=== PATIENT | male | born 1965 | race Hispanic/Latino ===

== ENCOUNTER 2017-03-27 22:01 | Emergency (ER) | payer OTHER ==
[2017-03-27 22:46] VITALS: RESP 16; TEMP 99.2
[2017-03-27] MEDS ORDERED: Sodium Chloride 0.9% 1,000 ML IV STA (23:34)
[2017-03-28 00:12] LABS: ALB/GLOB RATIO 1.4 (1.0-2.1); ALBUMIN 3.8 g/dL (3.5-5.0); ALT/SGPT 45 U/L (21-72); AST/SGOT 41 U/L (17-59); BLOOD UREA NITROGEN 13 mg/dl (9-20); CALCIUM 8.3 mg/dL (8.4-10.2); GFR AFRICAN-AMERICAN > 60; GFR NON-AFRICAN AMERICAN > 60; MAGNESIUM 1.9 MG/DL (1.6-2.3)
[2017-03-28 00:34] LABS: BASO # 0.1 K/uL (0.0-0.2); BASO % 0.3 % (0.0-2.0); EOS % 0.2 % (0.0-4.0); HEMOGLOBIN 13.3 g/dL (12.0-18.0); LYMPH # 2.5 K/uL (1.0-4.3); LYMPH % 10.7 % (20.0-40.0); MEAN CELL VOLUME 89.6 fl (80.0-94.0); MEAN CORPUSCULAR HEMOGLOBIN 29.7 pg (27.0-31.0); MEAN CORPUSCULAR HGB CONC 33.2 g/dL (33.0-37.0); MEAN PLATELET VOLUME 8.3 fl (7.2-11.7); MONO # 1.1 K/uL (0.0-0.8); MONO % 4.7 % (0.0-10.0); NEUT # 19.5 K/uL (1.8-7.0); NEUT % 84.1 % (50.0-75.0); RBC 4.49 Mil/uL (4.40-5.90); RED CELL DISTRIBUTION WIDTH 14.1 % (11.5-14.5); WHITE BLOOD COUNT 23.2 K/uL (4.8-10.8)
[2017-03-28] MEDS ORDERED: Ciprofloxacin 400mg/200ml D5W 400 MG/200 ML BAG IVPB STA (00:43)
[2017-03-28] MEDS ORDERED: Potassium Chloride 20 mEq ER Tab PO STA (00:43)
[2017-03-28] MEDS ORDERED: metroNIDAZOLE 500mg/100ml NS 100 ML IVPB STA (00:45)
[2017-03-28] MEDS ORDERED: Potassium Chloride 20 mEq ER Tab PO ONE (00:49)
--- NOTE | 2017-03-28 02:28 | ED PDOC ---
HPI: Abdomen Time Seen by Provider: 03/28/17 00:40 Chief Complaint (Nursing): GI Problem Chief Complaint (Provider): diarrhea History Per: Patient (51 y/o male here for evaluation of multiple episodes of watery diarrhea x 1 days. Notes nausea but denies any vomiting/fevers. Patient states he noted similar symptoms 1 week prior and was seen at urgent care with cipro x 3 days prescribed. Noted improvement of symptoms but has return of symptoms. Has had diarrhea intermittently x 1 year but has not seen GI for this.) Past Medical History Reviewed: Historical Data, Nursing Documentation, Vital Signs Vital Signs: Last Vital Signs Temp 99.2 F 03/27/17 22:42 Pulse 86 03/28/17 03:09 Resp 16 03/28/17 03:09 BP 134/89 03/28/17 03:09 Pulse Ox 98 03/28/17 03:18 - Surgical History Surgical History: Back Surgery (with hardware) - Family History Family History: States: No Known Family Hx - Home Medications Home Medications: Ambulatory Orders Medication Instructions Recorded Ciprofloxacin HCl [Cipro] 500 mg PO BID #14 tablet 03/28/17 Metronidazole [Flagyl] 500 mg PO QID #28 tablet 03/28/17 - Allergies Allergies/Adverse Reactions: Allergies Allergy/AdvReac Type Severity Reaction Status Date / Time No Known Allergies Allergy Verified 03/27/17 22:44 Review of Systems ROS Statement: Except As Marked, All Systems Reviewed And Found Negative Gastrointestinal: Positive for: Diarrhea Physical Exam - Reviewed Nursing Documentation Reviewed: Yes Vital Signs Reviewed: Yes - Physical Exam Appears: Positive for: Well, Non-toxic, No Acute Distress Head Exam: Positive for: ATRAUMATIC, NORMAL INSPECTION, NORMOCEPHALIC Skin: Positive for: Normal Color, Warm, DRY Eye Exam: Positive for: EOMI, Normal appearance, PERRL ENT: Positive for: Normal ENT Inspection Neck: Positive for: Normal, Painless ROM Cardiovascular/Chest: Positive for: Regular Rate, Rhythm Respiratory: Positive for: CNT, Normal Breath Sounds Gastrointestinal/Abdominal: Positive for: Normal Exam, Bowel Sounds, Soft Back: Positive for: Normal Inspection Extremity: Positive for: Normal ROM Neurologic/Psych: Positive for: Alert, Oriented - Laboratory Results Result Diagrams: 03/27/17 23:50 03/27/17 23:50 - ECG O2 Sat by Pulse Oximetry: 98 - Progress ED Course And Treament: NS 1 liter wide open KDUR 40 meq x 1 dose cipro 500mg iv x 1 dose flagyl 500 mg iv x 1 dose WILL SEND STOOL CX Disposition - Clinical Impression Clinical Impression: Colitis - Patient ED Disposition Is Patient to be Admitted: No - Disposition Referrals: Ky Patel MD [Staff Provider] - Disposition: Routine/Home Disposition Time: 03:16 Condition: FAIR Prescriptions: Ciprofloxacin HCl [Cipro] 500 mg PO BID #14 tablet Metronidazole [Flagyl] 500 mg PO QID #28 tablet Instructions: Acute Diarrhea (ED) Forms: [facility] [employer] (Lithuanian), [facility] ED School/Work Excuse
[2017-03-28 03:09] VITALS: BP 134/89; PULSE 86
[2017-03-28 03:18] VITALS: O2SAT 98
== END 2017-03-28 03:42 | disposition home or self-care (01) ==
LOC: H.ER 22:01
DX: K52.9 Noninfective gastroenteritis and colitis, unspecified (principal)
CPT/HCPCS: 80053; 83735; 85025; 87045; 87177; 87209; 87230; 96361; 96365; 96367; 99283; J0744; J7040

== ENCOUNTER 2018-03-17 10:05 | Observation (INO) | payer OTHER ==
[2018-03-17 10:14] VITALS: BMI 32.1
--- NOTE | 2018-03-17 11:25 | ED PDOC ---
HPI: General Adult Time Seen by Provider: 03/17/18 11:23 Chief Complaint (Nursing): Male Genitourinary Chief Complaint (Provider): abscess History Per: Patient (52 y/o male here with swelling noted scrotal region today. Denies any fevers/chills/urinary symptoms. Has noted additional bleeding from region of swelling.) Past Medical History Reviewed: Historical Data, Nursing Documentation, Vital Signs Vital Signs: Last Vital Signs Temp 98.1 F 03/17/18 10:15 Pulse 96 H 03/17/18 10:15 Resp 18 03/17/18 10:15 BP 149/90 03/17/18 10:15 Pulse Ox 96 03/17/18 10:15 - Medical History PMH: HTN - Surgical History Surgical History: Appendectomy, Back Surgery (with hardware) - Family History Family History: States: No Known Family Hx - Home Medications Home Medications: Ambulatory Orders Medication Instructions Recorded Esomeprazole Magnesium [Nexium 40 mg PO QPM 03/17/18 24Hr] QUEtiapine [SEROquel] 200 mg PO HS 03/17/18 Quetiapine Fumarate [Seroquel] 400 mg PO HS 03/17/18 Risperidone [Risperdal] 2 mg PO HS 03/17/18 Valsartan/Hydrochlorothiazide 1 tab PO DAILY 03/17/18 [Diovan Hct 320-25 mg Tablet] clonazePAM [Klonopin] 1 mg PO HS 03/17/18 metFORMIN [glucOPHAGE] 850 mg PO DAILY 03/17/18 - Allergies Allergies/Adverse Reactions: Allergies Allergy/AdvReac Type Severity Reaction Status Date / Time No Known Allergies Allergy Verified 03/27/17 22:44 Review of Systems ROS Statement: Except As Marked, All Systems Reviewed And Found Negative Physical Exam - Reviewed Nursing Documentation Reviewed: Yes Vital Signs Reviewed: Yes - Physical Exam Appears: Positive for: Well, Non-toxic, No Acute Distress Head Exam: Positive for: ATRAUMATIC, NORMAL INSPECTION, NORMOCEPHALIC Skin: Positive for: Normal Color, Warm, DRY Eye Exam: Positive for: EOMI, Normal appearance, PERRL ENT: Positive for: Normal ENT Inspection Neck: Positive for: Normal, Painless ROM Cardiovascular/Chest: Positive for: Regular Rate, Rhythm Respiratory: Positive for: CNT, Normal Breath Sounds Gastrointestinal/Abdominal: Positive for: Normal Exam, Soft Male Genital Exam: Positive for: other (3 cm abscess noted right sided perineal under right scrotal region draining.) Back: Positive for: Normal Inspection Extremity: Positive for: Normal ROM Neurologic/Psych: Positive for: Alert, Oriented - Laboratory Results Result Diagrams: 03/17/18 12:20 03/17/18 12:20 - ECG O2 Sat by Pulse Oximetry: 96 - Progress ED Course And Treament: ZOSYN 3.375GM IV X 1 DOSE VANCOMYCIN 1 GM IV X [address] ABD/PELVIS IMPRESSION: Findings are most compatible with cellulitis in the right perineum without evidence for abscess or drainable fluid collection. SEEN BY SURG RESIDENT IN ED. NO DRAINABLE ABSCESS. RECOMMENDS OBSERVATION DUE TO LOCATION OF CELLULITIS. D/W DR. CAVANAUGH. Disposition - Clinical Impression Clinical Impression: Cellulitis, perineum - Patient ED Disposition Is Patient to be Admitted: Yes - Disposition Disposition Time: 15:18 Condition: FAIR - Pt Status Changed To: Hospital Disposition Of: Observation
[2018-03-17] MEDS ORDERED: Vancomycin 1 g Inj ONE (12:45)
[2018-03-17 12:46] LABS: BASO % 0.4 % (0.0-2.0); EOS # 0.1 K/uL (0.0-0.7); EOS % 0.5 % (0.0-4.0); HEMOGLOBIN 14.8 g/dL (12.0-18.0); LYMPH # 1.4 K/uL (1.0-4.3); LYMPH % 14.3 % (20.0-40.0); MEAN CELL VOLUME 91.4 fl (80.0-94.0); MEAN CORPUSCULAR HEMOGLOBIN 31.4 pg (27.0-31.0); MEAN CORPUSCULAR HGB CONC 34.4 g/dL (33.0-37.0); MEAN PLATELET VOLUME 8.7 fl (7.2-11.7); MONO # 0.5 K/uL (0.0-0.8); MONO % 5.5 % (0.0-10.0); NEUT # 7.8 K/uL (1.8-7.0); NEUT % 79.3 % (50.0-75.0); NRBC % 0.2 % (0.0-0.0); RBC 4.7 Mil/uL (4.40-5.90); RED CELL DISTRIBUTION WIDTH 13.5 % (11.5-14.5); WHITE BLOOD COUNT 9.9 K/uL (4.8-10.8)
[2018-03-17 12:56] LABS: SQUAMOUS EPITHIAL < 1 /hpf (0-5); URINE BACTERIA RARE (<OCC); URINE BILIRUBIN NEGATIVE (NEGATIVE); URINE BLOOD NEGATIVE (NEGATIVE); URINE CLARITY SLIGHTY-CLOUDY (Clear); URINE COLOR YELLOW (YELLOW); URINE GLUCOSE (UA) NEG (NEGATIVE); URINE LEUKOCYTE ESTERASE NEG Leu/uL (Negative); URINE PROTEIN NEGATIVE (NEGATIVE); URINE UROBILINOGEN 0.2-1.0 mg/dL (0.2-1.0)
[2018-03-17 12:57] LABS: BLOOD UREA NITROGEN 15 mg/dl (9-20); CALCIUM 9.4 mg/dL (8.4-10.2); GFR NON-AFRICAN AMERICAN > 60
[2018-03-17] MEDS ORDERED: Iohexol 300 100 ML IJ ONE (13:29)
[2018-03-17] MEDS ORDERED: Sodium Chloride 0.9% 50 ML IV ONE (13:29)
--- NOTE | 2018-03-17 14:13 | CT ---
Date of service: 03/17/2018 PROCEDURE: CT Pelvis with contrast HISTORY: Perineal abscess COMPARISON: None available. TECHNIQUE: Contiguous axial images of the pelvis with contrast. Coronal and sagittal reformats generated. Contrast dose: 95 mL Omnipaque 300 Radiation dose: Total exam DLP = 606.97 mGy-cm. This CT exam was performed using one or more of the following dose reduction techniques: Automated exposure control, adjustment of the mA and/or kV according to patient size, and/or use of iterative reconstruction technique. FINDINGS: There is inflammatory fat stranding in the right perineum without evidence for abscess or drainable fluid collection. BLADDER: Grossly normal in appearance. REPRODUCTIVE ORGANS: The prostate gland is normal in size. VISUALIZED BOWEL: The visualized small bowel loops are normal in caliber. There are scattered diverticula in the visualized colon without CT evidence for acute diverticulitis. PERITONEUM: Unremarkable, as visualized. No free fluid. No free air. LYMPH NODES: No enlarged lymph nodes. VASCULATURE: No aortic atherosclerotic calcification or mural plaque present. BONES: No fracture or focal lesion. Status post posterior spinal fixation in the lower lumbar spine. OTHER FINDINGS: Small fat containing inguinal hernias, larger on the left. IMPRESSION: Findings are most compatible with cellulitis in the right perineum without evidence for abscess or drainable fluid collection.
[2018-03-17] MEDS ORDERED: Piperacillin/Tazobact 3.375 GM in Sodium Chloride 0.9% 100 ML IVPB STA (15:03)
[2018-03-17] MEDS ORDERED: Piperacillin/Tazobact 3.375 gm Inj IVPB ONE (15:21)
--- NOTE | 2018-03-17 16:19 | CP.PCM.CON ---
History of Present Illness - History of Present Illness History of Present Illness: General Surgery Consult: Dr. Campos 52M with PMHx of HTN, reports to [facility] ED with complaints of right perineal swelling. Patient states he noticed a small pimple along the right perineal region on Saturday. He reports area got swollen as the days went by. Reports sanguinous drainage from the region while sitting down today. Denies any purulent discharge being expressed from site. Patient denies any fever/chills, chest pain, palpitations, shortness of breath, abdominal pain, dysuria. Denies pain with defecation. PMHx: HTN PSurgHx: open appendectomy, left chest wall cyst excision Allergies: NKDA Fam Hx: Non-contributory Review of Systems - Review of Systems Review of Systems: 10 pt ROS unremarkable except as stated in HPI Past Patient History - Past Social History Smoking Status: Current Some Days Smoker - CARDIAC Hx Hypertension: Yes - PSYCHIATRIC Hx Substance Use: Yes (marijuana) - SURGICAL HISTORY Hx Appendectomy: Yes - ANESTHESIA Hx Anesthesia: Yes Hx Anesthesia Reactions: No Meds Allergies/Adverse Reactions: Allergies Allergy/AdvReac Type Severity Reaction Status Date / Time No Known Allergies Allergy Verified 03/27/17 22:44 Physical Exam - Constitutional Appears: Non-toxic, No Acute Distress - Head Exam Head Exam: NORMOCEPHALIC - Eye Exam Eye Exam: EOMI, Normal appearance - ENT Exam ENT Exam: Mucous Membranes Moist - Respiratory Exam Respiratory Exam: NORMAL BREATHING PATTERN - Cardiovascular Exam Cardiovascular Exam: +S1, +S2 - GI/Abdominal Exam GI & Abdominal Exam: Soft. absent: Distended, Firm, Guarding, Hernia, Rebound, Rigid, Tenderness - Neurological Exam Neurological exam: Alert, Oriented x3 - Psychiatric Exam Psychiatric exam: Normal Mood - Skin Skin Exam: Dry, Intact, Warm Results - Vital Signs Recent Vital Signs: Last Vital Signs Temp 98.3 F 03/17/18 15:20 Pulse 84 03/17/18 15:20 Resp 18 03/17/18 15:20 BP 139/87 03/17/18 15:32 Pulse Ox 97 03/17/18 15:20 - Labs Result Diagrams: 03/17/18 12:20 03/17/18 12:20 Labs: Laboratory Results - last 24 hr 03/17/18 03/17/18 03/17/18 12:20 12:20 12:30 WBC 9.9 D RBC 4.70 Hgb 14.8 Hct 43.0 MCV 91.4 MCH 31.4 H MCHC 34.4 RDW 13.5 Plt Count 190 D MPV 8.7 Neut % (Auto) 79.3 H Lymph % (Auto) 14.3 L [place] % (Auto) 5.5 Eos % (Auto) 0.5 Baso % (Auto) 0.4 Neut # (Auto) 7.8 H Lymph # (Auto) 1.4 [place] # (Auto) 0.5 Eos # (Auto) 0.1 Baso # (Auto) 0.0 Sodium 138 Potassium 3.9 Chloride 103 Carbon Dioxide 25 Anion Gap 14 BUN 15 Creatinine 0.8 Est GFR ( Amer) > 60 Est GFR (Non-Af Amer) > 60 Random Glucose 116 H Calcium 9.4 Urine Color Yellow Urine Clarity Slighty-cloudy Urine pH 5.0 Ur Specific [place] 1.027 Urine Protein Negative Urine Glucose (UA) Neg Urine Ketones 20 Urine Blood Negative Urine Nitrate Negative Urine Bilirubin Negative Urine Urobilinogen 0.2-1.0 Ur Leukocyte Esterase Neg Urine RBC (Auto) 2 Urine Microscopic WBC 1 Ur Squamous Epith Cells < 1 Urine Bacteria Rare Assessment & Plan - Assessment and Plan (Free Text) Assessment: 52M w/ right perineal cellulitis Plan: -No evidence of Founier's gangrene -C/w IV ABx -Warm compress to affected area -No drainable collection noted -No acute surgical intervention needed at this present time -Reassess in AM -Further recs per Dr. Andres Wise PGY3
[2018-03-17] MEDS: Piperacillin/Tazobact 3.375 GM in Sodium Chloride 0.9% 100 ML IVPB SCH (21:57)
[2018-03-18] MEDS: Piperacillin/Tazobact 3.375 GM in Sodium Chloride 0.9% 100 ML IVPB SCH ×4 (03:16→21:25)
--- NOTE | 2018-03-18 07:34 | CP.PCM.PN ---
Subjective - Date & Time of Evaluation Date of Evaluation: 03/18/18 Time of Evaluation: 07:32 - Subjective Subjective: Patient seen and examined. No acute events over night. States pain along perineal region has resolved. No drainable collection. No discharge noted. Patient states he feels better. Objective - Vital Signs/Intake and Output Vital Signs (last 24 hours): Temp Pulse Resp BP Pulse Ox 98.2 F 82 18 116/80 95 03/18/18 00:26 03/17/18 18:00 03/18/18 00:26 03/18/18 00:26 03/18/18 00:26 - Medications Medications: Current Medications Acetaminophen (Tylenol 325mg Tab) 650 mg PO Q6 PRN PRN Reason: Fever >100.4 F Acetaminophen (Tylenol 325mg Tab) 650 mg PO Q6 PRN PRN Reason: Pain, moderate (4-7) Clonazepam (Klonopin) 1 mg PO [facility] Last Admin: 03/17/18 21:56 Dose: 1 mg Piperacillin Sod/Tazobactam (Sod 3.375 gm/ Sodium Chloride) 100 mls @ 100 mls/hr IVPB Q6 [facility]; Protocol Last Admin: 03/18/18 03:16 Dose: 100 mls/hr Vancomycin HCl 1 gm/ Sodium (Chloride) 250 mls @ 166.667 mls/hr IVPB DAILY [facility]; Protocol Pantoprazole Sodium (Protonix Ec Tab) [address] [facility] Quetiapine Fumarate (Seroquel) 600 mg PO [facility] Last Admin: 03/17/18 21:56 Dose: 600 mg Risperidone (Risperdal Tab) 2 mg PO [facility] Last Admin: 03/17/18 21:56 Dose: 2 mg - Labs Labs: 03/17/18 12:20 03/17/18 12:20 - Constitutional Appears: No Acute Distress - Head Exam Head Exam: NORMOCEPHALIC - Eye Exam Eye Exam: EOMI, Normal appearance - ENT Exam ENT Exam: Mucous Membranes Moist - Respiratory Exam Respiratory Exam: NORMAL BREATHING PATTERN - Cardiovascular Exam Cardiovascular Exam: +S1, +S2 - GI/Abdominal Exam GI & Abdominal Exam: Soft. absent: Distended, Firm, Guarding, Rigid, Tenderness - Neurological Exam Neurological Exam: Alert, Awake, Oriented x3 - Psychiatric Exam Psychiatric exam: Normal Mood - Skin Additional comments: Erythema along perineal region much improved No subcutaneous emphysema noted Assessment and Plan - Assessment and Plan (Free Text) Assessment: 52M with right perineal cellulitis , improving Plan: -Afebrile -C/w IV ABx -Likely d/c today -Recommend PO ABx upon d/c -Resume diet -Encourage ambulation -OK to shower Further recs per Dr. Andres Wise PGY3
[2018-03-18 08:16] VITALS: RESP 20
[2018-03-18 08:20] LABS: BASO # 0.1 K/uL (0.0-0.2); BASO % 0.9 % (0.0-2.0); EOS # 0.2 K/uL (0.0-0.7); EOS % 2.8 % (0.0-4.0); HEMOGLOBIN 14.3 g/dL (12.0-18.0); LYMPH # 2.2 K/uL (1.0-4.3); LYMPH % 35.3 % (20.0-40.0); MEAN CELL VOLUME 93.4 fl (80.0-94.0); MEAN CORPUSCULAR HEMOGLOBIN 31.3 pg (27.0-31.0); MEAN CORPUSCULAR HGB CONC 33.5 g/dL (33.0-37.0); MEAN PLATELET VOLUME 8.4 fl (7.2-11.7); MONO # 0.6 K/uL (0.0-0.8); MONO % 10.4 % (0.0-10.0); NEUT # 3.1 K/uL (1.8-7.0); NEUT % 50.6 % (50.0-75.0); NRBC % 0.1 % (0.0-0.0); RBC 4.55 Mil/uL (4.40-5.90); RED CELL DISTRIBUTION WIDTH 13.8 % (11.5-14.5); WHITE BLOOD COUNT 6.1 K/uL (4.8-10.8)
[2018-03-18] MEDS: Pantoprazole 40 mg EC Tab PO SCH (09:22)
--- NOTE | 2018-03-18 21:23 | HP ---
HISTORY OF PRESENT ILLNESS: Mr. Salcido is a 52-year-old male who was admitted via the emergency room because of perianal cellulitis for the past several days prior to presentation associated with rectal pain. He had a CT scan of abdomen and pelvis done which shows induration of the perianal area but no abscess formation, but physical exam was remarkable for possible abscess of rectum. He has no remarkable past medical history and was admitted with IV antibiotic therapy and analgesics for pain. FAMILY HISTORY: Unremarkable. SOCIAL HISTORY: He does not smoke or drink. REVIEW OF SYSTEMS: Essentially unremarkable. PHYSICAL EXAMINATION: GENERAL: The patient is alert and oriented. He appears much more comfortable since admission. Denies rectal pain. VITAL SIGNS: Stable. LUNGS: Clear. HEART: Regular. No murmurs or gallops. ABDOMEN: Soft, nontender. No organomegaly. EXTREMITIES: Show no edema or cyanosis. CENTRAL NERVOUS SYSTEM: Grossly intact. RECTAL: Perirectal area shows mild perirectal induration with redness. Otherwise, unremarkable. IMPRESSION: Perianal cellulitis. PLAN: Intravenous antibiotics and analgesics for pain. Monitor the patient in hospital. Discharge with oral antibiotic therapy in the morning if clinically stable. Robinson Coleman MD
[2018-03-19] MEDS: Piperacillin/Tazobact 3.375 GM in Sodium Chloride 0.9% 100 ML IVPB SCH ×2 (03:23→08:59)
[2018-03-19 08:06] VITALS: BP 123/84; PULSE 87; TEMP 97.3; O2SAT 97
[2018-03-19] MEDS: Pantoprazole 40 mg EC Tab PO SCH (08:34)
--- NOTE | 2018-03-19 10:24 | CP.PCM.DIS ---
Provider - Provider Date of Admission: 03/17/18 16:25 Attending physician: Robinson Coleman MD Consults: 03/17/18 15:18 General Surgery Consult Stat Comment: PERINEAL ABSCESS/CELLULITIS Consulting Provider: Chico Campos Consulting Physician: Chico Campos Reason for Consult: PERINEAL ABSCESS/CELLULITIS Time Spent in preparation of Discharge (in minutes): 30 Diagnosis - Discharge Diagnosis (1) Cellulitis, perineum Status: Acute Hospital Course - Lab Results Lab Results: Micro Results 03/17/18 12:30 Urine,Clean Catch Urine Culture - Final No Growth (<1,000 CFU/ML) 03/17/18 12:10 Blood-Venous Blood Culture - Preliminary NO GROWTH AFTER 24 HOURS 03/17/18 12:20 Blood-Venous Blood Culture - Preliminary NO GROWTH AFTER 24 HOURS Most Recent Lab Values WBC 6.1 K/uL (4.8-10.8) 03/18/18 08:14 RBC 4.55 Mil/uL (4.40-5.90) 03/18/18 08:14 Hgb 14.3 g/dL (12.0-18.0) 03/18/18 08:14 Hct 42.5 % (35.0-51.0) 03/18/18 08:14 MCV 93.4 fl (80.0-94.0) D 03/18/18 08:14 MCH 31.3 pg (27.0-31.0) H 03/18/18 08:14 MCHC 33.5 g/dL (33.0-37.0) 03/18/18 08:14 RDW 13.8 % (11.5-14.5) 03/18/18 08:14 Plt Count 191 K/uL (130-400) 03/18/18 08:14 MPV 8.4 fl (7.2-11.7) 03/18/18 08:14 Neut % (Auto) 50.6 % (50.0-75.0) 03/18/18 08:14 Lymph % (Auto) 35.3 % (20.0-40.0) 03/18/18 08:14 [place] % (Auto) 10.4 % (0.0-10.0) H 03/18/18 08:14 Eos % (Auto) 2.8 % (0.0-4.0) 03/18/18 08:14 Baso % (Auto) 0.9 % (0.0-2.0) 03/18/18 08:14 Neut # (Auto) 3.1 K/uL (1.8-7.0) 03/18/18 08:14 Lymph # (Auto) 2.2 K/uL (1.0-4.3) 03/18/18 08:14 [place] # (Auto) 0.6 K/uL (0.0-0.8) 03/18/18 08:14 Eos # (Auto) 0.2 K/uL (0.0-0.7) 03/18/18 08:14 Baso # (Auto) 0.1 K/uL (0.0-0.2) 03/18/18 08:14 Sodium 138 mmol/l (132-148) 03/17/18 12:20 Potassium 3.9 MMOL/L (3.6-5.0) 03/17/18 12:20 Chloride 103 mmol/L (98-107) 03/17/18 12:20 Carbon Dioxide 25 mmol/L (22-30) 03/17/18 12:20 Anion Gap 14 (10-20) 03/17/18 12:20 BUN 15 mg/dl (9-20) 03/17/18 12:20 Creatinine 0.8 mg/dl (0.8-1.5) 03/17/18 12:20 Est GFR ( Amer) > 60 03/17/18 12:20 Est GFR (Non-Af Amer) > 60 03/17/18 12:20 POC Glucose (mg/dL) 94 mg/dL (65-110) 03/19/18 05:51 Random Glucose 116 mg/dL (75-110) H 03/17/18 12:20 Calcium 9.4 mg/dL (8.4-10.2) 03/17/18 12:20 Urine Color Yellow (YELLOW) 03/17/18 12:30 Urine Clarity Slighty-cloudy (Clear) 03/17/18 12:30 Urine pH 5.0 (5.0-8.0) 03/17/18 12:30 Ur Specific [place] 1.027 (1.003-1.030) 03/17/18 12:30 Urine Protein Negative mg/dL (NEGATIVE) 03/17/18 12:30 Urine Glucose (UA) Neg mg/dL (NEGATIVE) 03/17/18 12:30 Urine Ketones 20 mg/dL (NEGATIVE) 03/17/18 12:30 Urine Blood Negative (NEGATIVE) 03/17/18 12:30 Urine Nitrate Negative (NEGATIVE) 03/17/18 12:30 Urine Bilirubin Negative (NEGATIVE) 03/17/18 12:30 Urine Urobilinogen 0.2-1.0 mg/dL (0.2-1.0) 03/17/18 12:30 Ur Leukocyte Esterase Neg [place]/uL (Negative) 03/17/18 12:30 Urine RBC (Auto) 2 /hpf (0-3) 03/17/18 12:30 Urine Microscopic WBC 1 /hpf (0-5) 03/17/18 12:30 Ur Squamous Epith Cells < 1 /hpf (0-5) 03/17/18 12:30 Urine Bacteria Rare (<OCC) 03/17/18 12:30 - Hospital Course Hospital Course: RECTAL PAIN RESOLVED Discharge Exam - Head Exam Head Exam: NORMOCEPHALIC - Eye Exam Eye Exam: EOMI, Normal appearance, PERRL Pupil Exam: NORMAL ACCOMODATION, PERRL - GI/Abdominal Exam GI & Abdominal Exam: Normal Bowel Sounds - Rectal Exam Rectal Exam: NORMAL INSPECTION - Neurological Exam Neurological exam: Alert, CN II-XII Intact, Normal Gait, Oriented x3, Reflexes Normal - Psychiatric Exam Psychiatric exam: Normal Affect, Normal Mood - Skin Skin Exam: Dry, Intact, Normal Color, Warm Discharge Plan - Follow Up Plan Condition: FAIR Disposition: HOME/ ROUTINE Instructions: Cellulitis (Skin Infection), Adult (DC) Additional Instructions: follow up with primary MD 1 week Referrals: Chico Campos MD [Staff Provider] -
== END 2018-03-19 12:11 | disposition home or self-care (01) ==
LOC: H.ER 10:05 → H.ERHOLD 16:25 → H.MEDSURG1 17:40
PROVIDERS: ADMIT Internal Medicine Pulmonary Disease; ATTEND Internal Medicine Pulmonary Disease
DX: L03.315 Cellulitis of perineum (principal); I10 Essential (primary) hypertension; F17.200 Nicotine dependence, unspecified, uncomplicated; Z79.84 Long term (current) use of oral hypoglycemic drugs
CPT/HCPCS: 36415; 72193; 80048; 81003; 82948; 85025; 87040; 87086; 96365; 99285; G0378; J2543; Q9967